=== PATIENT | female | born 1995 | race Caucasian/White ===

== ENCOUNTER 2020-03-20 02:46 | Emergency (ER) | payer OTHER ==
[~2020-03-20] VITALS: Ht 149.9 cm; Wt 50.0 kg
[2020-03-20 02:53] VITALS: BP 128/87
[2020-03-20] MEDS ORDERED: ONDANSETRON ODT 4 MG ONE (03:07)
--- NOTE | 2020-03-20 03:17 | NUR ---
Patient BIB [facility] c/o anxiety. Patient has a hx of anxiety which she takes medication for. +ETOH tonight; patient denies alcohol use regularly. Patient is nauseous. Denies SOB or CP. Patient is breathing rapidly and crying.
[2020-03-20] MEDS ORDERED: ONDANSETRON ODT 4 MG PO ONE (03:30)
--- NOTE | 2020-03-20 03:49 | NUR ---
Discharge instructions given. All questions and concerns addressed. Patient ambulatory with a steady gait. Belongings with patient.
== END 2020-03-20 03:52 | disposition home or self-care (01) ==
LOC: ED 03:30
DX: F10.120 Alcohol abuse with intoxication, uncomplicated (principal); R11.0 Nausea; Y90.0 Blood alcohol level of less than 20 mg/100 ml
CPT/HCPCS: 99283; Q0162